=== PATIENT | female | born 1975 | race American Indian/Alaskan Native ===

== ENCOUNTER 2017-07-08 18:51 | Emergency (ER) | payer OTHER ==
[2017-07-08 19:13] VITALS: BP 132/78
[2017-07-08] MEDS ORDERED: TRIPLE ANTIBIOTIC TP ONE ×2 (23:44→23:46)
--- NOTE | 2017-07-09 00:14 | Emergency Department Report ---
ED Laceration HPI - HPI Chief Complaint: Laceration/Recheck/Suture Stated Complaint: LEFT LEG LACERATION Time Seen by Provider: 07/08/17 23:32 Occurred When: Today Location: Lower Extremity (Left lanier) Severity: moderate Tetanus Status: Up to Date Laceration Symptoms: Yes Pain, No Foreign Body Sensation, No Numbness, No Weakness Other History: This is a 41 y.o. female that presents with a laceration to left lanier that occured this morning at home. Patient reports walking by stove and catching leg on the side of the stove. She noticed moderate amount of blood to left leg. States pain is 5/10 on scale and non-radiating. She used water to clean wound and came in to work for assessment. She did not notice a foreign object in wound. There is mild swelling to surrounding tissue and tender to touch. She is up to date on tetanus vaccine. Denies numbness, tingling, fever, foreign object in wound, redness, and fever. ED Review of Systems ROS: Stated complaint: LEFT LEG LACERATION Other details as noted in HPI Constitutional: denies: chills, fever Respiratory: denies: cough, shortness of breath, wheezing Cardiovascular: denies: chest pain, palpitations, syncope Gastrointestinal: denies: abdominal pain, nausea, vomiting, diarrhea Skin: lesions (laceration to left lanier). denies: rash Neurological: denies: headache, weakness, numbness, paresthesias Psychiatric: denies: anxiety, depression ED Past Medical Hx - Past Medical History Hx Asthma: Yes - Surgical History Additional Surgical History: hysterectomy - Social History Smoking Status: Never Smoker Substance Use Type: None - Medications Home Medications: Home Medications Medication Instructions Recorded Confirmed Last Taken Type Cyclobenzaprine HCl [Flexeril 5 MG 5 mg PO Q8HR #20 tablet 01/28/15 Unknown Rx TAB] Ibuprofen [Motrin 800 MG tab] 800 mg PO Q8HR PRN #30 tablet 01/28/15 Unknown Rx traMADol [Ultram 50 MG tab] 50 mg PO Q6HR PRN #20 tablet 01/28/15 Unknown Rx HYDROcodone/APAP 7.5-325 [Wideman 1 each PO Q6HR PRN #10 tablet 02/11/15 Unknown Rx 7.5/325] Ondansetron [Zofran Odt] 4 mg SL Q6H PRN #8 tab.rapdis 12/04/15 Unknown Rx Sulfamethoxazole/Trimethoprim 1 each PO BID 10 Days #20 tablet 07/09/17 Unknown Rx [Bactrim DS TAB] Laceration Physical Exam - Exam General: Vital signs noted. No distress. Alert and acting appropriately. Wound Length (cm): 2 Laceration Location: Lower Extremity (left lanier) Full Body Front + Back: 1 - 2 cm laceration, left lanier, into tissue, flap removed, mild serosangionous discharge, mild swelling, tender, and erythematous, no tendon or vessel exposure. Laceration Exam: Yes Normal Distal CMS, No Foreign Body, No Exposed Tendon, Vessel, or Nerve, No Tendon Injury ED Course Vital Signs 07/08/17 19:10 Temperature 98.9 F Pulse Rate 102 H Respiratory 16 Rate Blood Pressure 132/78 O2 Sat by Pulse 98 Oximetry ED Medical Decision Making - Medical Decision Making This is a 41 y.o. female presents with left lanier laceration. Patient examined by me. No radiograph or labs obtained. Patient is non-toxic appearing and stable. Tetanus up to date. Physical examination is susceptible of laceration with cellulites. Cleaned wound with wound cleanser and applied triple antibiotic ointment, and applied sterile dressing. Discharged home for outpatient treatment with bactrim. Discussed ER care plan with patient. Patient agreed with plan. F/U with PCP. Critical care attestation.: If time is entered above; I have spent that time in minutes in the direct care of this critically ill patient, excluding procedure time. ED Disposition Clinical Impression: Laceration of lower leg with infection Qualifiers: Encounter type: initial encounter Laterality: left Qualified Code(s): S81.812A - Laceration without foreign body, left lower leg, initial encounter Disposition: TO HOME OR SELFCARE Is pt being admited?: No Does the pt Need Aspirin: No Condition: Stable Instructions: Laceration (ED) Additional Instructions: Take antibiotics as prescribed for the full course. Avoid over use of left hand and prop arm up on pillows to decrease swelling. Follow up with Primary Care Provider in 2-3 days. Return to ER if red, swollen, foul discharge, or fever. Prescriptions: Sulfamethoxazole/Trimethoprim [Bactrim DS TAB] 1 each PO BID 10 Days #20 tablet Referrals: THANG IVEY MD [Staff Physician] - 3-5 Days [facility] [Provider Group] - 3-5 Days Forms: Work/School Release Form(ED) Time of Disposition: 00:21 Print Language: YAKUT
== END 2017-07-09 00:40 | disposition home or self-care (01) ==
LOC: ED 18:51
DX: S81.812A Laceration without foreign body, left lower leg, initial encounter (principal); X58.XXXA Exposure to other specified factors, initial encounter; Y93.89 Activity, other specified; Y92.89 Other specified places as the place of occurrence of the external cause; Y99.8 Other external cause status
CPT/HCPCS: 99282; A6250